=== PATIENT | male | born 1945 | race Caucasian/White ===

== ENCOUNTER 2016-08-09 | Inpatient (IN) | payer MEDICARE, OTHER ==
[~2016-08-09] MED LIST: AMIODARONE PO; ASPIRIN81 M2 PO; ATORVASTATIN CA80 MG PO; AUGMENTIN875 MG PO; BACITRACIN1 GM TOP; FAMOTIDINE PO; FLAGYL PO; FLEXERIL10 M1 PO; HUMULIN 70/30 V10 ML SUBQ; HUMULIN 70100 UNITS/; HUMULIN 70100 UNITS/ SUBQ; IMDUR-ER30 M1 PO; IMDUR-ER60 M1 PO; LEVAQUIN750 MG PO; LIPITOR80 MG PO; LISINOPRIL; LISINOPRIL PO; LO-DOSE ASPIRIN81 M1 PO; LORTAB 7.5-5001 TAB PO; METOPROLOL SUC200 MG PO; MINOXIDIL2.5 MG PO; NEURONTIN100 MG PO; NO MEDICATIONS; NORVASC10 MG PO; NOVOLIN 70100 UNITS/ SUBQ; NOVOLOG100 UNITS/ INJ; ONE DAILY MULTI1 TA3 PO; PLAVIX PO; PRINIVIL20 M1 PO; RENAL SOFTGEL1 MG PO; ROBITUSSIN A-C10 ML PO; TOPROL XL100 MG PO; TUSSIONEX PENN473 ML PO; ULTRAM PO; XARELTO15 MG PO; ZESTRIL40 MG PO; [UNRECOGNIZED DRUG - REMARK]
--- NOTE | ~2016-08-09 | HP ---
Unit #: [id number] #: [id number] Patient: STELLA GUERRERO [id number] [address] [place], [place] [address] [id number] I MR#: [id number] NAME: STELLA GUERRERO ROOM: 21319 Age: 70 Sex: M Admission Date: 08/09/2016 : 1945 Attending Physician: Corry Cisneros M.D. Primary Care Physician: Generic Doctor Not In System HISTORY AND PHYSICAL CHIEF COMPLAINT Vertigo. HISTORY Pleasant 70-year-old male with end stage renal failure, CAD, hypertension, diabetes mellitus, is admitted for vertigo. The patient was seen in this emergency department three days ago for a left lower facial droop. He was diagnosed with Tobias palsy. Head CT showed no acute disease. He was placed on a Medrol dose pack and Valtrex. Shortly after taking the Valtrex he developed a staggering gait, and vertigo. Presented back to this emergency department early this morning where he has a very minor left lower facial droop on exam. Labs are notable for uncontrolled diabetes mellitus on Medrol dose pain, and mild hyperkalemia. He was given Antivert in the ER and referred for admission for an MRI scan. PAST MEDICAL HISTORY 1. AODM, which generally are poorly controlled at home. 2. Hypertension. 3. End stage renal failure on hemodialysis Friday, Friday and Friday. 4. Cardiac catheterization this past year, showing no fixed lesions and patent stent. The patient reports two MIs and underwent PCI and stenting. Has normal LV function. 5. History of cirrhosis with thrombocytopenia. 6. Essential hypertension. 7. Anemia. 8. Hyperlipidemia. 9. Left arm dialysis shunt. 10. Tonsillectomy. 11. ORIF left ankle fracture. ALLERGIES None. HOME MEDICATIONS Norvasc 10 mg daily; lisinopril 40 mg daily; Valtrex 1 g b.i.d.; Medrol dose pack; Prilosec 20 mg daily; Nephro-Marlin daily; aspirin 81 mg daily; Lipitor 80 mg daily; Plavix 75 mg daily; Imdur 30 mg daily; Coreg 12.5 mg b.i.d.; and sliding scale 70/30 Novolin and NovoLog. FAMILY HISTORY Negative for neurologic disease. Unit #: [id number] #: [id number] Patient: STELLA GUERRERO SOCIAL HISTORY The patient lives alone, he is a lifelong nonsmoker. No longer drinks alcohol. REVIEW OF SYSTEMS Notable for vertigo left lower facial droop, diabetes, hypertension, end stage renal failure, CAD, cirrhosis, anemia, hyperlipidemia, diabetes mellitus, above mentioned surgeries. All other surgeries were reviewed and are otherwise negative. PHYSICAL EXAMINATION GENERAL: 70-year-old moderately obese male currently in no acute distress. VITAL SIGNS: Temperature 98.9, pulse 90, respirations 22, blood pressure 148/120, O2 saturation is 96% on room air. HEENT: Eyes - PERRLA, extraocular muscles are intact. Pharynx is benign. Poor dentition with a mild left lower facial droop. CHEST: Clear. CARDIAC: Normal S1 and S2 without S3, S4 or murmur. ABDOMEN: Bowel sounds are present. No hepatosplenomegaly, tenderness, or masses. EXTREMITIES: Without clubbing, cyanosis or edema. Pedal pulses are diminished. NEUROLOGIC: Patient is awake, alert, and oriented. Cranial nerves are intact. He does have some ataxia when attempting to stand and close his eyes when sitting. He has +5/5 strength throughout. Normal rapid alternating movements. Normal [id number]. DIAGNOSTIC STUDIES ADMISSION LABS: Hematocrit 32.9, which is stable, normal white count, platelet count is stable at 77. MCV is 102.6. SMA 12 - glucose is 428, BUN 54, creatinine 7.9, sodium 133, potassium 5.6, chloride 97. ASSESSMENT 1. Vertigo likely secondary to Valtrex. However, given recent left lower facial droop diagnosis, Carrington palsy, will need to rule out a central lesion. 2. Left local facial droop, which probably is related to Carrington palsy on Medrol dose pack and Valtrex. 3. AODM with hyperglycemia on steroids. 4. End stage renal failure on hemodialysis Friday, Friday, and Friday with hyperkalemia. 5. Essential hypertension. 6. CAD, status post PCI and stent. 7. Chronic thrombocytopenia. PLANS 1. MRI of the brain. 2. Discontinue Valtrex. 3. If needed could consider lower dose of Famvir. 4. Diabetic control. 5. IV insulin and p.o. Kayexalate for now and consult nephrology as patient shoulder have his dialysis today. Dictated by Faith Lee M.D. Unit #: [id number] #: [id number] Patient: STELLA GUERRERO AML/ts TD: 08/09/2016 06:25 JOB #: [id number] HISTORY AND PHYSICAL Page 1 of 1 X Faith Lee MD X HISTORY AND PHYSICAL
--- NOTE | ~2016-08-09 | MR18 ---
[facility] A Service of [facility] RADIOLOGY TEXT RESULTS PATIENT: STELLA GUERRERO LOCATION: [facility] 313-01 : 43 UNIT #: [id number] AGE: [address]: Corry Cisneros MD SEX: M ORDER DR: [id number] [facility] [address]. [place], [place] [address] [id number] I MR#: [id number] Acc #: [id number] NAME: STELLA GUERRERO : 1945 SEX: M STUDY DATE/TIME: 08/09/2016 17:01 [facility] STUDY DESCRIPTION: MR Brain Wo Contrast Attending Physician: Corry Cisneros M.D. Ordering Physician: Corry Cisneros M.D. Primary Care Physician: Generic Doctor Not In System MRI CENTER REPORT This report is preliminary unless electronic signature is present. EXAM MRI brain without contrast HISTORY Dizzy for 3 days. Right facial droop and numbness. Aphasia today. FINDINGS MRI brain was performed without contrast. No recent ischemia or infarct. Mild generalized cerebral cortical atrophy and mild chronic ischemic changes in the periventricular white matter bilaterally. No intracranial mass or edema. No focal atrophy or midline shift or extraaxial fluid collection. IMPRESSION 1. No acute findings. No recent ischemia or infarct. 2. Mild generalized cerebral cortical atrophy and minimal chronic ischemic changes in the deep white matter bilaterally. Dictated by... Harpal Love M.D. THIS IS AN ELECTRONICALLY VERIFIED REPORT Harpal Love M.D. at 08/17/2016 10:34 PM RAYMON/art TD: 08/10/2016 03:01 JOB #: [id number] MRI CENTER REPORT Page 1 of 1 COPY
--- NOTE | ~2016-08-09 | CO ---
Unit #: [id number] #: [id number] Patient: STELLA GUERRERO [id number] [facility] [address] [facility]. [place], [place] [address] [id number] I MR#: [id number] NAME: STELLA GUERRERO ROOM: 313 Age: 70 Sex: M Admission Date: 08/09/2016 : 1945 Attending Physician: Corry Cisneros M.D. Primary Care Physician: Generic Doctor Not In System Consultation Date: 08/09/2016 CONSULTATION REPORT PRIMARY CARE PHYSICIAN Not in the system. REASON FOR CONSULTATION 1. Vertigo. 2. Possible diplopia. PATIENT IDENTIFICATION This is a 70-year-old right-handed white male, who is evaluated in room 313 at [facility]. SOURCE OF INFORMATION The patient and the medical records. PROBLEM LIST 1. History of vertigo. 2. Possible diplopia. 3. Recent diagnosis of Carrington palsy. 4. Adult-onset diabetes mellitus. 5. Hypertension. 6. End-stage renal disease, on hemodialysis Friday, Friday, and Friday. 7. Prior history of MO. He underwent PCI and stenting. 8. History of cirrhosis with thrombocytopenia. 9. Essential hypertension. 10. Anemia. 11. Hyperlipidemia. I believe he is on 80 mg of Lipitor. 12. Left arm dialysis shunt. 13. Tonsillectomy. 14. ORIF of left ankle fracture. HISTORY OF PRESENT ILLNESS This is a 70-year-old right-handed white male, who actually presented early this morning to the emergency room complaining of vertigo. He was here apparently on Friday. He was diagnosed with left facial weakness and he was diagnosed with Carrington palsy. In the ER, he was put on Medrol Dosepak and Valtrex and he reports that after taking Valtrex, he developed staggering gait. His left facial asymmetry has almost gone. He has now a patch on the right eye because of diplopia kind of situations. He has renal issues. He is mildly confused. He is now admitted for further workup for stroke, but obviously was not interventional or tPA candidate. He says that this happened this morning, but when looking at his history and his presentation and he called his ex- at 11:00 p.m. last night saying that he was staggering and have dizziness. Unit #: [id number] #: [id number] Patient: STELLA GUERRERO No real headaches. He has his right eye essentially bandaged and he really is very difficult to exam. He does not cooperate. He has his whole head bandaged as if somebody would like a major head trauma and he would not touch it himself. He told me to do it and then fix it back. PAST MEDICAL HISTORY As discussed above. PAST SURGICAL HISTORY As discussed above. ALLERGIES None. HOME MEDICATIONS Norvasc 10 mg daily, lisinopril 40 mg, Valtrex 1 g b.i.d., Medrol Dosepak, Prilosec 20 mg, Nephro-Marlin, aspirin 81 mg, Lipitor 80 mg, Plavix 75 mg, Imdur 30 mg, Coreg 12.5 mg, sliding scale insulin, and NovoLog. FAMILY HISTORY No primary neurologic conditions known. SOCIAL HISTORY He believe that he is . His ex- does help him. Lifelong nonsmoker. No longer drinks alcohol. REVIEW OF SYSTEMS Detailed review of system was attempted. CONSTITUTIONAL: His biggest problem is dizziness. He denies any weight issues, sleep problems, fever, chills, rigor, or sweats. HEENT: No headaches, but he reports vertigo and questionable diplopia. He had face numbness, but it is better. NECK: No neck problems. CARDIOVASCULAR: No chest pain, clubbing, cyanosis, orthopnea, or palpitation. PULMONARY: No shortness of air, cough, or expectoration. GI: He has some nausea. No vomiting. GENITOURINARY: No genitourinary symptom. EXTREMITIES: No extremity problem. BACK: No back problems. PSYCHIATRIC: No psychotic issue. NEUROLOGIC: Left facial numbness and dizziness. No other hematologic, dermatologic, or endocrine issues. He has renal issues, diabetic though. PHYSICAL EXAMINATION VITAL SIGNS: Temperature 98.1, pulse is 90, respirations 16 to 22, O2 were 92% to 98%, blood pressure 193/94 which is variable, it has been as high as 104 diastolic and 193 systolic. Weight of 218 pounds. BMI was 32. NEUROLOGIC: The patient is awake. He is alert. He knows this is Friday, this is 07/2016. He does not know the exact date. He can name and he can follow commands. Unit #: [id number] #: [id number] Patient: STELLA GUERRERO Cranial nerve examination, he has his right eye bandaged. He would not open it up. When I requested it and even pull the bandage off, the only thing I could not really see was medial deviation of both eyes and other eye movements and huizar are very questionable and there is some disconjugacy, was likely considering this medial deviation. Pupils are sluggishly reactive, size about 3 mm. No ptosis though. Nystagmus was seen to some extent as discussed above. I did not see any facial asymmetry. Hearing seemed to be moderately decreased. Tongue was midline. I could not visualize the oropharynx or uvula. Head turning was spontaneous. Motor examination demonstrated normal bulk, tone. Strength was essentially 5-/5 all over. Sensory examination intact for soft touch and pain sensation. No extinction was seen. Romberg was not evaluated. Gait exam was deferred. I could not get any reflexes. Toes are equivocal. DIAGNOSTIC STUDIES LABORATORY RESULTS: Random glucose was anywhere from 165 to 375, BUN was 60, creatinine was 8.4, estimated GFR was 5.7, alkaline phosphatase was 109. CK was 176. White count was 8.8, H and H of 11.1 and 33.0, platelet count was 71. Urinalysis not checked. IMAGING STUDIES: Head CT done from 08/06/2016, did not show anything major. IMPRESSION Dizziness and vertigo for several days, ataxia, weakness, possible diplopia. He started having symptoms 3 days ago, probably worsening last night, so he was not a tPA or interventional candidate. He is mildly confused. There may be some behavioral issues also. He definitely has TME. He definitely has focal neurologic deficit. What was 3 days ago and what is today, I cannot say anything right now. I want an MRI and further testing and he is already on aspirin, Plavix, and Lipitor, so further treatment will be based on what I can do and what we find. I will keep you informed and I talked to his ex- and please see my orders. Stroke workup would be initiated. Carrington palsy is questionable at this time, but again he would not really let me do a good examination on him, so it is very limited. I will follow up. Dictated by... Joe Matt M.D. FRANCISCO/alex TD: 08/10/2016 06:14 JOB #: [id number] Unit #: [id number] #: [id number] Patient: STELLA GUERRERO CONSULTATION REPORT Page 1 of 1 X Joe Matt MD CONSULTATION REPORT
--- NOTE | ~2016-08-09 | CO ---
Unit #: [id number] #: [id number] Patient: STELLA GUERRERO [id number] [facility] [address] [facility]. [place], [place] [address] [id number] I MR#: [id number] NAME: STELLA GUERRERO ROOM: 313 Age: 70 Sex: M Admission Date: 08/09/2016 : 1945 Attending Physician: Corry Cisneros M.D. Primary Care Physician: Generic Doctor Not In System Consultation Date: 08/13/2016 CONSULTATION REPORT DISCUSSION The patient interviewed, chart reviewed, and obtained information from nursing staff. The patient was seen in room 313, bed 1 at [facility]. The patient was dressed in hospital attire, lying comfortably in bed, able to answer questions coherently. The patient according to the nursing staff having periods of time and he is more confused, at times he is very clear. The patient diagnosed with acute toxic metabolic encephalopathy. Currently, denied any hallucination or any thoughts of harming self or others. Cooperative. The patient's vital signs are stable; temperature 98.1, pulse 61, respiratory rate 20, blood pressure 125/47, and oxygen saturation 96%. The patient will be getting dialysis tomorrow. REVIEW OF SYSTEMS Complete review of systems unremarkable. MENTAL STATUS EXAMINATION General appearance, the patient dressed in hospital attire. Attention span and concentration, fair. Speech, regular rate. Oriented in place and person. Mood and affect, labile. Thought process, circumstantial. Thought content, the patient denied any thoughts of harming self or others, but somewhat guarded. Recent and remote memory, fair to slightly impaired. Language, fair. Fund of knowledge, fair to slightly impaired. Insight and judgment, fair to slightly impaired. DIAGNOSES Psychiatric: Major neurocognitive disorder with behavioral disturbances, secondary to metabolic encephalopathy; delirium, F05, resolved. ASSESSMENT/PLAN 1. Supportive psychotherapy and psychoeducation provided to the patient. 2. Educated about benefits and side effects of medication and course and prognosis of illness. 3. Advised to continue with current combination of medication and make further adjustment of medication if needed. Please feel free to call if any questions, telephone #[phone]. Dictated by... Jatinder Orourke M.D. TORRES/alex Unit #: [id number] #: [id number] Patient: STELLA GUERRERO TD: 08/14/2016 23:38 JOB #: [id number] CONSULTATION REPORT Page 1 of 1 X Jatinder Orourke MD CONSULTATION REPORT
--- NOTE | ~2016-08-09 | MR122 ---
[facility] A Service of [facility] RADIOLOGY TEXT RESULTS PATIENT: STELLA GUERRERO LOCATION: [facility] 313 : 43 UNIT #: [id number] AGE: [address]: Corry Cisneros MD SEX: M ORDER DR: [id number] [facility] [address] [facility]. [place], [place] [address] [id number] I MR#: [id number] #: [id number] NAME: STELLA GUERRERO : 1945 SEX: M STUDY DATE/TIME: 08/09/2016 16:59 [facility] STUDY DESCRIPTION: MR MRA Head Wo Contrast Attending Physician: Corry Cisneros M.D. Ordering Physician: Corry Cisneros M.D. Primary Care Physician: Generic Doctor Not In System MRI CENTER REPORT This report is preliminary unless electronic signature is present. EXAM MR angiogram brain without contrast HISTORY Right facial numbness and facial droop for 3 days. Dizzy. Aphasia today. FINDINGS MRI of the brain was performed without contrast. No major vessel occlusion is identified. Dominant intracranial right vertebral artery and relatively hypoplastic left intracranial vertebral artery. 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 Probable moderate to severe short-segment stenosis in the proximal right cavernous carotid artery. The anterior cerebral, middle cerebral, and posterior cerebral arteries are patent bilaterally. No aneurysm or vascular malformation is identified. Additional shxm-bi-ibhpivmq multifocal short segment stenoses in the posterior cerebral arteries bilaterally, probably atherosclerotic. IMPRESSION 1. No major intracranial arterial occlusion. 2. 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 3. Additional gyrg-kj-tpxpened multifocal short segment short-segment probable atherosclerotic stenoses in the posterior cerebral arteries bilaterally. 4. Moderate to moderately severe short-segment stenosis proximal right cavernous internal carotid artery. Dictated by... [facility] A Service of [facility] RADIOLOGY TEXT RESULTS PATIENT: STELLA GUERRERO LOCATION: [facility] 313- : 43 UNIT #: [id number] AGE: [address]: Corry Cisneros MD SEX: M ORDER DR: Harpal Love M.D. THIS IS AN ELECTRONICALLY VERIFIED REPORT Harpal Love M.D. at 08/17/2016 10:34 PM RAYMON/art TD: 08/10/2016 03:14 JOB #: [id number] MRI CENTER REPORT Page 1 of 1 COPY
--- NOTE | ~2016-08-09 | CO ---
Unit #: [id number] #: [id number] Patient: STELLA SEVILLA [id number] [address] [address] [id number] I MR#: [id number] NAME: STELLA SEVILLA ROOM: 313 Age: 70 Sex: M Admission Date: 08/09/2016 : 1945 Attending Physician: Corry Cisneros M.D. Primary Care Physician: Nikolay Doctor Not In System Consultation Date: 08/11/2016 CONSULTATION REPORT REASON FOR CONSULTATION Agitation, confusion. HISTORY OF PRESENT ILLNESS Mr. Stella Sevilla is a 70-year-old white male seen in room 313 bed-1 on 08/11/16. Patient was admitted with a chief complaint of vertigo. The patient has a history of end stage renal disease, coronary artery disease, hypertension, diabetes. The patient, upon admission, became disoriented, confused, agitated. Patient was given injection of Haldol 5 mg, Ativan 0.5 mg which was effective. Patient was started on Zyprexa 5 mg at bedtime for mood stabilization. Patient seems to be better, alert, oriented, coherent. Patient currently on this medication since the , feeling better. Denied any thoughts of harming self or others, denied any psychotic symptoms. Patient reported feeling better, improved memory but, at that time, patient was extremely disoriented and confused. PAST PSYCHIATRIC HISTORY Unremarkable for any history of any previous treatment. No known history of any depression, anxiety or any other diagnosis of dementia. MEDICAL HISTORY Medical history is remarkable for: 1. History of AODM, poorly controlled at home. 2. Hypertension. 3. End stage renal failure, on hemodialysis. 4. History of cirrhosis. 5. Essential hypertension. 6. Anemia. 7. Hyperlipidemia. ALLERGIES No known drug allergies. MEDICATIONS The patient is on: 1. Norvasc. 2. Lisinopril. 3. Valtrex. 4. Medrol pack upon admission. 5. Prilosec. 6. Lipitor. 7. Plavix. 8. Imdur. 9. Coreg. Unit #: [id number] #: [id number] Patient: STELLA SEVILLA 10. Sliding scale Novolin. FAMILY HISTORY/SOCIAL HISTORY The patient has a poor support system. No history of any abuse. No known history of any substance abuse. REVIEW OF SYSTEMS Complete review of systems is unremarkable except as mentioned above. MENTAL STATUS EXAMINATION VITAL SIGNS: 98.3, 73, 20, 143/51. Oxygen saturation 94%. GENERAL APPEARANCE: Patient dressed casually in hospital attire, lying comfortably in bed, able to answer questions appropriately. Speech - regular rate, coherent. Oriented in time, place and person. Mood and affect were flat, sad, dysphoric. Thought process coherent. Thought content - patient denied any thoughts of harming self or others but somewhat guarded. Denied any hallucinations or any suicidal or homicidal ideation. Recent and remote memory fair. Language intact. Fund of knowledge poor. Insight and judgment fair. DIAGNOSIS PSYCHIATRIC: 1. Delirium - F05, resolved. 2. Psychosis - F29.0, controlled. SECONDARY DIAGNOSIS Deferred. MEDICAL DIAGNOSIS Please refer to H and P. STRESSORS Psychosocial stressor. ASSESSMENT/PLAN 1. Supportive psychotherapy and psychoeducation provided to patient. 2. Educated about benefits and side effects of medication and course and prognosis of illness. 3. Recommending at this time to continue with Zyprexa 5 mg at bedtime which is helping to keep patient's mood stable. At this time, recommend patient to continue with this medication for at least for the next couple of months and taper it off once patient is stable or lowering it down. Please feel free to call if any questions. Telephone number [phone]. Dictated by... Abraham Andersen/jose TD: 08/12/2016 06:20 JOB #: [id number] Unit #: [id number] #: [id number] Patient: STELLA SEVILLA CONSULTATION REPORT Page 1 of 1 X Jatinder Orourke MD CONSULTATION REPORT
--- NOTE | ~2016-08-09 | DS ---
Unit #: [id number] #: [id number] Patient: STELLA GUERRERO [id number] [address] [address] [id number] I MR#: [id number] NAME: STELLA GUERRERO ROOM: 313 Age: 70 Sex: M Admission Date: 08/09/2016 : 1945 Discharge Date: 08/14/2016 Attending Physician: Corry Cisneros M.D. Primary Care Physician: Generic Doctor Not In System DISCHARGE SUMMARY ADDENDUM Please refer to Dr. Cisneros's discharge summary as dictated on 08/12/16 for details of hospital stay. The patient essentially was kept in the hospital secondary to logistical/insurance reasons for initial two midnights now that he is qualified per Medicare guidelines. The patient will be transitioned to rehab for ongoing care. FINAL DISCHARGE MEDICATIONS 1. Aspirin 81 mg p.o. daily. 2. Plavix 75 mg p.o. daily. 3. Omeprazole 20 mg p.o. daily. 4. Zyprexa 5 mg p.o. q. h.s. 5. Imdur 30 mg p.o. daily. 6. Nephrocaps, one capsule p.o. daily. 7. Coreg 25 mg p.o. b.i.d. 8. Norvasc 10 mg p.o. daily. 9. Lipitor 80 mg p.o. q. h.s. 10. Catapres 0.1 mg p.o. b.i.d. 11. Zestril 40 mg p.o. daily. 12. Novolin 70/30, 8 units subcu b.i.d. with meals. 13. NovoLog low dose sliding scale with insulin. Accu-Cheks q. a.c. and q. h.s. DISCHARGE DISPOSITION Rehab. DISCHARGE CONDITION Stable. Dictated by... Nolan Dowd M.D. JULIA/jose TD: 08/15/2016 12:22 JOB #: [id number] Unit #: [id number] #: [id number] Patient: STELLA GUERRERO DISCHARGE SUMMARY Page 1 of 1 X Nolan Dowd MD DISCHARGE SUMMARY
--- NOTE | ~2016-08-09 | DS ---
Unit #: [id number] #: [id number] Patient: STELLA GUERRERO [id number] [facility]. [address] [place], [place] [address] [id number] I MR#: [id number] NAME: STELLA GUERRERO ROOM: 313 Age: 70 Sex: M Admission Date: 08/09/2016 : 1945 Discharge Date: 08/12/2016 Attending Physician: Coryr Cisneros M.D. Primary Care Physician: Generic Doctor Not In System DISCHARGE SUMMARY DIAGNOSIS ON ADMISSION Vertigo. DIAGNOSES ON DISCHARGE 1. Acute toxic metabolic encephalopathy. 2. Right basilar artery stenosis. 3. Right internal carotid artery stenosis. 4. End-stage renal disease. Patient is on hemodialysis Friday, Friday and Friday. 5. Hypertension. 6. Type 2 diabetes mellitus. 7. Coronary artery disease, status post stent. 8. History of cirrhosis with thrombocytopenia. 9. Anemia. 10. Hypertension. 11. Hyperlipidemia. CONSULTATIONS 1. Dr. Matt in neurology consultation. 2. Dr. Orourke in psych consultation. DIAGNOSTIC STUDIES LABORATORY: The patient's creatinine was 9.2 today before dialysis. WBC is 7.5, hemoglobin is 10.1, platelet count was 76. Hemoglobin A1C was 6.0. The patient's total cholesterol was 77 and LDL was 17. IMAGING: MRA of neck revealed right basilar and right internal carotid artery stenosis. MRI of brain did not reveal any acute finding. There was no recent ischemia or infarct. HOSPITAL COURSE A 70-year-old male was admitted to the hospital with vertigo. Details are as per admission H and P. Patient had an MRI done which did not reveal any acute CVA. Patient then became really confused and agitated and required a sitter as he was pulling his IVs out and monitor off. He was seen by Dr. Orourke in consultation and was given medication. Patient has gradually improved and is back to his normal self. He is accompanied by his sister and is complaining of weakness; therefore, we will arrange debility. Basilar and internal carotid artery stenosis. Patient is advised to Unit #: [id number] #: [id number] Patient: STELLA GUERRERO follow up with Dr. Huff at [facility] stroke center. End-stage renal disease. Patient continues his hemodialysis. Today patient is comfortable, is not in any acute distress. Patient will be transferred to rehab when bed is available. Further hospital course will be dictated by my partner. Dictated by... Abraham Mosley/ganesh TD: 08/12/2016 15:41 JOB #: [id number] DISCHARGE SUMMARY Page 1 of 1 X Corry Cisneros MD X DISCHARGE SUMMARY
--- NOTE | ~2016-08-09 | CO ---
Unit #: [id number] #: [id number] Patient: STELLA GUERRERO [id number] [address] [address] [id number] I MR#: [id number] NAME: STELLA GUERRERO ROOM: 313 Age: 70 Sex: M Admission Date: 08/09/2016 : 1945 Attending Physician: Corry Cisneros M.D. Primary Care Physician: Generic Doctor Not In System CONSULTATION REPORT REASON FOR CONSULTATION Dialysis management. The patient is a 70-year-old ESRD patient on dialysis every Friday, Friday and Friday. Last dialysis presumably was on Friday. The patient came into the emergency room two days ago with a facial droop. 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 The patient came in yesterday with a staggering gait accompanied by vertigo. The patient has a blood pressure of 193/97. The patient has a CT head that is negative and he is currently scheduled for an MRI that is pending. The patient denies any chest pain or shortness of breath. He does have a mild lower facial droop. He denies any other signs or symptoms of nausea, vomiting or diarrhea. The patient is extremely tearful and agitated due to his symptoms. It is unclear when he was last dialyzed or if he took all (1) dictation ended abruptly Please note: This report has been placed on the patient's electronic medical record in an incomplete status following multiple physician notifications for a completion without a response or resolution. Dictated by... Abraham Solis TD: 08/09/2016 11:26 JOB #: [id number] Unit #: [id number] #: [id number] Patient: STELLA GUERRERO CONSULTATION REPORT Page 1 of 1 X X CONSULTATION REPORT
--- NOTE | ~2016-08-09 | DS ---
Unit #: [id number] #: [id number] Patient: STELLA GUERRERO [id number] [facility]. [place] [id number] I MR#: [id number] NAME: STELLA GUERRERO ROOM: 313 Age: 70 Sex: M Admission Date: 08/09/2016 : 1945 Discharge Date: Attending Physician: Corry Cisneros M.D. DISCHARGE SUMMARY DIAGNOSIS ON ADMISSION Vertigo. DIAGNOSES ON DISCHARGE 1. Acute toxic metabolic encephalopathy. 2. Right basilar artery stenosis. 3. Right internal carotid artery stenosis. 4. End-stage renal disease. Patient is on hemodialysis Friday, Friday and Friday. 5. Hypertension. 6. Type 2 diabetes mellitus. 7. Coronary artery disease, status post stent. 8. History of cirrhosis with thrombocytopenia. 9. Anemia. 10. Hypertension. 11. Hyperlipidemia. CONSULTATIONS 1. Dr. Matt in neurology consultation. 2. Dr. Orourke in psych consultation. DIAGNOSTIC STUDIES LABORATORY: The patient's creatinine was 9.2 today before dialysis. WBC is 7.5, hemoglobin is 10.1, platelet count was 76. Hemoglobin A1C was 6.0. The patient's total cholesterol was 77 and LDL was 17. IMAGING: MRA of neck revealed right basilar and right internal carotid artery stenosis. MRI of brain did not reveal any acute finding. There was no recent ischemia or infarct. HOSPITAL COURSE A 70-year-old male was admitted to the hospital with vertigo. Details are as per admission H and P. Patient had an MRI done which did not reveal any acute CVA. Patient then became really confused and agitated and required a sitter as he was pulling his IVs out and monitor off. He was seen by Dr. Orourke in consultation and was given medication. Patient has gradually improved and is back to his normal self. He is accompanied by his sister and is complaining of weakness; therefore, we will arrange debility. Basilar and internal carotid artery stenosis. Patient is [facility] to [facility] Unit #: [id number] #: [id number] Patient: STELLA GUERRERO End-stage renal disease. Patient continues his hemodialysis. Today patient is comfortable, is not in any acute distress. Patient will be transferred to rehab when bed is available. Further hospital course will be dictated by my partner. Dictated by... Abraham Mosley/ganesh TD: 08/12/2016 15:41 JOB #: [id number] ADDENDUM DISCHARGE MEDICATIONS 1. Nephrocaps 1 capsule p.o. daily. 2. Plavix 75 mg p.o. daily. 3. Imdur-ER 30 mg p.o. daily. 4. Lisinopril 40 mg p.o. daily. 5. Norvasc 10 mg p.o. daily. 6. Lipitor 80 mg p.o. daily. 7. Enteric-coated aspirin 81 mg p.o. daily. 8. Zyprexa 5 mg p.o. at bedtime p.r.n. Please discontinue if patient does not have any agitation in the next 3 days. 9. Coreg 25 mg p.o. b.i.d. 10. Novolin 70/30 at 12 units subcutaneous b.i.d. before meals. 11. Insulin sliding scale as per facility. 12. Prilosec 20 mg p.o. daily. Please note, if there is any discrepancy between dictated medications and medication reconciliation form, kindly follow the medication reconciliation form. DISPOSITION Patient will be transferred to rehab. Dictated by... Abraham Mosley TD: 08/12/2016 16:34 JOB #: [id number] CC: Shelby/marty Please Delete DISCHARGE SUMMARY Page 1 of 1 X Corry Cisneros MD X DISCHARGE SUMMARY
--- NOTE | ~2016-08-09 | MR134 ---
[facility] A Service of [facility] RADIOLOGY TEXT RESULTS PATIENT: STELLA GUERRERO LOCATION: [facility] 313-01 : 43 UNIT #: [id number] AGE: [address]: Corry Cisneros MD SEX: M ORDER DR: [id number] [facility] [address] [facility]. [place], [place] [address] [id number] I MR#: [id number] Acc #: [id number] NAME: STELLA GUERRERO : 1945 SEX: M STUDY DATE/TIME: 08/09/2016 16:59 UNIT: [address] ROOM: [facility] STUDY DESCRIPTION: MR MRA Neck Wo Contrast Attending Physician: Corry Cisneros M.D. Ordering Physician: Corry Cisneros M.D. Primary Care Physician: Generic Doctor Not In System MRI CENTER REPORT This report is preliminary unless electronic signature is present. EXAM MR angiogram neck without contrast HISTORY Right facial numbness and facial droop for 3 days. Dizzy. Aphasia today. FINDINGS MR angiogram of the neck was performed without contrast. Exam sensitivity is limited by motion. The visualized portions of the common carotid arteries are patent bilaterally but sensitivity is insufficient to exclude owtc-fz-rzpmqqda stenoses. The carotid bulbs appear widely patent bilaterally. There is probable kkgj-fn-ywdyiqjq atherosclerotic plaque in the proximal right internal carotid artery, but no convincing evidence of hemodynamically significant stenosis by NASCET criteria. However, the internal carotid arteries are not optimally evaluated due to patient motion artifact. Both vertebral arteries are patent, where visualized. Dominant right vertebral artery. IMPRESSION 1. No convincing evidence of hemodynamically significant cervical carotid artery stenosis by NASCET criteria. However, the exam sensitivity is quite limited by patient motion. Consider carotid ultrasound for further evaluation based on clinical suspicion. There is probably mild atherosclerotic plaque in the proximal right internal carotid artery. 2. Both vertebral arteries are patent with dominant right vertebral artery. Dictated by... Harpal Love M.D. [facility] A Service [facility] RADIOLOGY TEXT RESULTS PATIENT: STELLA GUERRERO LOCATION: [facility] 313-01 : 43 UNIT #: [id number] AGE: [address]: Corry Cisneros MD SEX: M ORDER DR: THIS IS AN ELECTRONICALLY VERIFIED REPORT Harpal Love M.D. at 08/17/2016 10:34 PM RAYMON/art TD: 08/10/2016 03:18 JOB #: [id number] MRI CENTER REPORT Page 1 of 1 COPY
--- NOTE | ~2016-08-09 | CO ---
Unit #: [id number] #: [id number] Patient: STELLA SEVILLA [id number] [address] [place], [place] [address] [id number] I MR#: [id number] NAME: STELLA SEVILLA ROOM: 313 Age: 70 Sex: M Admission Date: 08/09/2016 : 1945 Attending Physician: Corry Cisneros M.D. Consultation Date: 08/14/2016 CONSULTATION REPORT REASON FOR CONSULTATION Followup. DISCUSSION Mr. Stella Sevilla is a 70-year-old male, seen on third floor getting dialysis. The patient was pleasant and cooperative during interview, able to answer questions appropriately. The patient denied any problem with sleep or agitation. Able to answer questions appropriately. Denied any suicidal or homicidal ideation. Denied any psychotic symptom. The patient was compliant and cooperative. No agitation. Denied any hallucination, but still some problem with memory, confusion, but no agitation. The patient is receiving dialysis and diagnosed with acute toxic metabolic encephalopathy. The patient's vital signs; temperature 97.9, pulse 61, respiratory rate 16, blood pressure 152/55, and oxygen saturation 94%. REVIEW OF SYSTEMS Complete review of systems unremarkable. MENTAL STATUS EXAMINATION General appearance, the patient dressed casually in hospital attire, lying comfortably in bed, receiving dialysis. Attention span and concentration, fair. Speech, regular rate and coherent. Oriented in time, place, and person. Mood and affect, sad and dysphoric. Thought process, coherent to circumstantial. Thought content, guarded, but denied any thoughts of harming self or others. Recent and remote memory, fair to poor. Language, fair. Fund of knowledge, fair. Insight and judgment, fair to slightly impaired. 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 ASSESSMENT/PLAN 1. Supportive psychotherapy and psychoeducation provided to the patient. 2. Educated about benefits and side effects of medication and course and prognosis of illness. 3. Advised to continue with current combination of medication. If needed, consider further adjustment of medication. Please feel free to call if any questions, telephone #[phone]. Dictated by... Jatinder Orourke M.D. Unit #: [id number] #: [id number] Patient: STELLA SEVILLA TORRES/alex TD: 08/14/2016 23:46 JOB #: [id number] CONSULTATION REPORT Page 1 of 1 X Jatinder Orourke MD CONSULTATION REPORT
--- NOTE | ~2016-08-09 | CO ---
Unit #: [id number] #: [id number] Patient: STELLA SEVILLA [id number] [address] [address] [id number] I MR#: [id number] NAME: STELLA SEVILLA ROOM: 313 Age: 70 Sex: M Admission Date: 08/09/2016 : 1945 Attending Physician: Corry Cisneros M.D. Primary Care Physician: Nikolay Doctor Not In System Consultation Date: 08/12/2016 CONSULTATION REPORT REASON FOR CONSULTATION Follow. DISCUSSION Mr. Stella Sevilla is a 70-year-old male seen in room 313 bed-1 on 08/12/16. The patient was compliant, cooperative, alert, oriented. Patient was able to answer questions appropriately. Patient denied any thoughts of harming self or others. Patient was diagnosed with acute toxic metabolic encephalopathy. He seemed to be more alert, awake. Also, diagnosed with delirium which seems to be resolved. Denied any suicidal or homicidal ideation. At this time, cooperative, no agitation. No side effect of medication. Vital signs - 98.0, 71, 20, 149/64. Oxygen saturation 99%. REVIEW OF SYSTEMS Complete review of systems unremarkable. MENTAL STATUS EXAMINATION GENERAL APPEARANCE: Patient dressed casually. Attention span and concentration fair. Speech was regular, slow in volume and rate. Oriented in place and person. Mood and affect labile. Thought process was circumstantial. Thought content - guarded, paranoid but denied any thoughts of harming self or others. Recent and remote memory fair to slightly impaired. Language - fair. Fund of knowledge fair Insight and judgment fair to slightly impaired. DIAGNOSIS PSYCHIATRIC: 1. Delirium - F05. 2. Acute toxic metabolic encephalopathy. SECONDARY DIAGNOSIS Deferred. MEDICAL DIAGNOSES 1. Acute toxic metabolic encephalopathy. 2. Right basilar artery stenosis. 3. Right internal carotid artery stenosis. 4. End stage renal disease. 5. Hypertension. 6. Type 2 diabetes mellitus. 7. Coronary artery disease. 8. History of cirrhosis/thrombocytopenia. Unit #: [id number] #: [id number] Patient: STELLA SEVILLA 9. Anemia. 10. Hypertension. 11. Hyperlipidemia. ASSESSMENT/PLAN 1. Supportive psychotherapy and psychoeducation provided to patient. 2. Educated about benefits and side effects of medications and course and prognosis of illness. 3. Advised to continue with the current medication. The patient is on Zyprexa 5 mg at bedtime. Advised to discontinue if patient is able to maintain safe behavior for the next three days. If needed, consider at a later date. Please feel free to call if any questions. Telephone number [phone]. Dictated by... Abraham Andersen/jose TD: 08/14/2016 09:47 JOB #: [id number] CONSULTATION REPORT Page 1 of 1 X Jatinder Orourke MD CONSULTATION REPORT
[2016-08-09 02:38] LABS: BASOPHIL% 0.1 % (0-2.5); EOSINOPHIL% 0.1 % (0.0-7.0); HEMATOCRIT 32.9 % (38.0-50.0); LYMPHOCYTE# 0.7 X10e3 (1.0-3.5); LYMPHOCYTE% 9.1 % (17.0-45.0); MEAN CELL VOLUME 102.6 FL (83-96); MEAN CORPUSCULAR HEMOGLOBIN 34.4 PG (28-34); MEAN CORPUSCULAR HGB CONC 33.5 g/dL (30-36); MONOCYTE# 0.3 X10e3 (0-1.0); MONOCYTE% 4.2 % (3.0-12.0); NEUTROPHIL# 6.7 X10e3 (1.5-7.1); NEUTROPHIL% 86.5 % (40-75); RED CELL DISTRIBUTION WIDTH 16.4 % (11.0-15.5); WHITE BLOOD COUNT 7.8 X10e3 (4.0-10.5)
[2016-08-09 03:06] LABS: DIFF IND YES; PLATELET COUNT 77 X10e3 (140-420)
[2016-08-09 03:17] LABS: ALBUMIN SERUM 4.3 g/dL (3.5-5.0); BILIRUBIN, DIRECT 0.2 mg/dL (0.0-0.2); BILIRUBIN,INDIRECT 0.6 mg/dL (0.0-0.9); BILIRUBIN,TOTAL 0.8 mg/dL (0.2-2.0); BUN/CREATININE RATIO 6.83; CALCIUM SERUM 9.6 mg/dL (8.4-10.2); CREATININE SERUM 7.9 mg/dL (0.6-1.4); GLOM FILT RATE Estimated 6.2 mL/min (>60); PROTEIN TOTAL SERUM 7.2 g/dL (6.0-8.3)
[2016-08-09 03:19] LABS: POTASSIUM 5.6 mmol/L (3.5-5.1)
[2016-08-09 03:22] LABS: ANISOCYTOSIS SL; PLATELET ESTIMATE DECREASED (NORMAL)
[2016-08-09 03:23] LABS: POLYCHROMASIA SL
[2016-08-09] MEDS ORDERED: NORVASC10 MG PO (06:08)
[2016-08-09] MEDS ORDERED: PRILOSEC PO (06:09)
[2016-08-09] MEDS ORDERED: PRINIVIL40 MG PO (06:09)
[2016-08-09] MEDS ORDERED: NEPHRO-VITE RX1 EACH PO (06:09)
[2016-08-09] MEDS ORDERED: COREG12.5 MG PO (06:10)
[2016-08-09] MEDS ORDERED: CLOPIDOGREL75 MG PO (06:10)
[2016-08-09] MEDS ORDERED: LIPITOR80 MG PO (06:10)
[2016-08-09] MEDS ORDERED: IMDUR-ER30 M3 PO (06:10)
[2016-08-09] MEDS ORDERED: NOVOLIN 70100 UNITS/ SUBQ (06:11)
[2016-08-09] MEDS ORDERED: ASPIRIN81 M2 PO (06:11)
[2016-08-09 09:01] LABS: HEMOGLOBIN 11.1 gm/dL (13.0-16.0); MEAN CELL VOLUME 101.9 FL (83-96); MEAN CORPUSCULAR HEMOGLOBIN 34.2 PG (28-34); MEAN CORPUSCULAR HGB CONC 33.5 g/dL (30-36); MEAN PLATELET VOLUME 10.2 FL (6.5-11.5); RED BLOOD COUNT 3.24 X10e (3.90-5.60); RED CELL DISTRIBUTION WIDTH 16.8 % (11.0-15.5); WHITE BLOOD COUNT 8.8 X10e3 (4.0-10.5)
[2016-08-09 09:10] LABS: BUN/CREATININE RATIO 7.14; CALCIUM SERUM 9.5 mg/dL (8.4-10.2); CREATININE SERUM 8.4 mg/dL (0.6-1.4); GLOM FILT RATE Estimated 5.7 mL/min (>60); POTASSIUM 5.1 mmol/L (3.5-5.1)
[2016-08-09 09:29] LABS: %MB 4.1 % (0.0-4.0); MB 7.2 ng/ml
[2016-08-09 13:44] LABS: CHOLESTEROL 77 mg/dL (0-200); HDL CHOLESTEROL 26 mg/dL (29-75); LDL CHOLESTEROL 17 mg/dL (-130); LDL/HDL RATIO 1 RATIO (0-4); TRIGLYCERIDES 171 mg/dL (10-160)
[2016-08-09 20:20] LABS: BUN/CREATININE RATIO 7.34; CALCIUM SERUM 9.4 mg/dL (8.4-10.2); CREATININE SERUM 9.4 mg/dL (0.6-1.4); POTASSIUM 4.4 mmol/L (3.5-5.1)
[2016-08-10 07:04] LABS: HEMATOCRIT 33.7 % (38.0-50.0); HEMOGLOBIN 11.2 gm/dL (13.0-16.0); MEAN CELL VOLUME 101.8 FL (83-96); MEAN CORPUSCULAR HEMOGLOBIN 33.8 PG (28-34); MEAN CORPUSCULAR HGB CONC 33.2 g/dL (30-36); MEAN PLATELET VOLUME 10.8 FL (6.5-11.5); RED BLOOD COUNT 3.3 X10e (3.90-5.60); RED CELL DISTRIBUTION WIDTH 16.5 % (11.0-15.5)
[2016-08-10 07:05] LABS: WHITE BLOOD COUNT 13.7 X10e3 (4.0-10.5)
[2016-08-10 07:22] LABS: BUN/CREATININE RATIO 7.24; CALCIUM SERUM 9.1 mg/dL (8.4-10.2); CREATININE SERUM 9.8 mg/dL (0.6-1.4); GLOM FILT RATE Estimated 4.7 mL/min (>60); POTASSIUM 4.8 mmol/L (3.5-5.1)
[2016-08-11 06:33] LABS: BUN/CREATININE RATIO 6.76; CALCIUM SERUM 9.3 mg/dL (8.4-10.2); GLOM FILT RATE Estimated 7.4 mL/min (>60); POTASSIUM 4.1 mmol/L (3.5-5.1)
[2016-08-11 06:41] LABS: CREATININE SERUM 6.8 mg/dL (0.6-1.4)
[2016-08-12 06:47] LABS: HEMOGLOBIN 10.1 gm/dL (13.0-16.0); MEAN CELL VOLUME 102.2 FL (83-96); MEAN CORPUSCULAR HEMOGLOBIN 34.3 PG (28-34); MEAN CORPUSCULAR HGB CONC 33.6 g/dL (30-36); MEAN PLATELET VOLUME 10.7 FL (6.5-11.5); RED BLOOD COUNT 2.93 X10e (3.90-5.60); RED CELL DISTRIBUTION WIDTH 16.5 % (11.0-15.5); WHITE BLOOD COUNT 5.7 X10e3 (4.0-10.5)
[2016-08-12 07:45] LABS: BUN/CREATININE RATIO 8.15; CREATININE SERUM 9.2 mg/dL (0.6-1.4); GLOM FILT RATE Estimated 5.1 mL/min (>60); MAGNESIUM 2.1 mg/dL (1.6-3.0); POTASSIUM 4.1 mmol/L (3.5-5.1)
[2016-08-13 13:49] LABS: URINE SOURCE CLEAN CATCH
[2016-08-13 14:04] LABS: URINE APPEARANCE CLEAR; URINE BILIRUBIN NEG (NEG); URINE BLOOD TRACE (NEG); URINE COLOR YELLOW; URINE GLUCOSE 500 MG/DL (NEG); URINE KETONE NEG (NEG); URINE LEUKOCYTE ESTERASE NEG (NEG); URINE NITRATE NEG (NEG); URINE PH 7.5 (5-8); URINE PROTEIN 3+ (NEG); URINE SPECIFIC GRAVITY 1.016 (1.003-1.035); URINE UROBILINOGEN 0.2 MG/DL (NEG)
[2016-08-13 14:08] LABS: U HYALINE CASTS AUWI 0-2 /[LPF]; URBCS1 AUWI 0-2 /[HPF] (0-2); URINE BACTERIA AUWI NEG (NEGATIVE); URINE SQUAMOUS EPITHELIAL CELL NONE SEEN /[HPF]
[2016-08-13 14:10] LABS: CULTURE INDICATED? NO
[2016-08-14 06:36] LABS: HEMATOCRIT 27.1 % (38.0-50.0); HEMOGLOBIN 9.1 gm/dL (13.0-16.0); MEAN CELL VOLUME 102.3 FL (83-96); MEAN CORPUSCULAR HEMOGLOBIN 34.4 PG (28-34); MEAN CORPUSCULAR HGB CONC 33.6 g/dL (30-36); MEAN PLATELET VOLUME 11.1 FL (6.5-11.5); RED BLOOD COUNT 2.65 X10e (3.90-5.60); WHITE BLOOD COUNT 4.6 X10e3 (4.0-10.5)
[2016-08-14 07:41] LABS: BUN/CREATININE RATIO 8.53; CALCIUM SERUM 8.5 mg/dL (8.4-10.2); CREATININE SERUM 8.2 mg/dL (0.6-1.4); GLOM FILT RATE Estimated 5.9 mL/min (>60); POTASSIUM 4.4 mmol/L (3.5-5.1)
[2016-08-14] MEDS ORDERED: CATAPRES0.1 MG PO (15:47)
[2016-08-14] MEDS ORDERED: ZYPREXA PO (15:48)
== END 2016-08-14 18:07 | disposition home health service (06) | DRG 91 ==
LOC: CED → C3A PCU 04:50 → CEDOF 04:50 → CED 04:57 → C3A PCU 04:57 → CEDOF 06:25 → C5B 06:52 → CEDOF 10:10 → C3A PCU 10:10 → C5B 10:10 → C3A PCU 10:28
PROVIDERS: Emergency Medicine; Family Medicine; Internal Medicine
PROC: B338ZZZ Magnetic Resonance Imaging (MRI) of Bilateral Internal Carotid Arteries (ICD-10-PCS; principal; 2016-08-09)
PROC: B33GZZZ Magnetic Resonance Imaging (MRI) of Bilateral Vertebral Arteries (ICD-10-PCS; 2016-08-09)
PROC: 5A1D60Z (ICD-10-PCS; 2016-08-09)
DX: G92 Toxic encephalopathy (principal); N18.6 End stage renal disease; I12.0 Hypertensive chronic kidney disease with stage 5 chronic kidney disease or end stage renal disease; D69.6 Thrombocytopenia, unspecified; F05 Delirium due to known physiological condition; F02.81 Dementia in other diseases classified elsewhere, unspecified severity, with behavioral disturbance; R27.0 Ataxia, unspecified; G51.0 Bell's palsy; Z99.2 Dependence on renal dialysis; I25.2 Old myocardial infarction; K74.60 Unspecified cirrhosis of liver; D64.9 Anemia, unspecified; E78.5 Hyperlipidemia, unspecified; I65.1 Occlusion and stenosis of basilar artery; I65.21 Occlusion and stenosis of right carotid artery; I25.10 Atherosclerotic heart disease of native coronary artery without angina pectoris; E11.65 Type 2 diabetes mellitus with hyperglycemia; Z79.82 Long term (current) use of aspirin; Z79.4 Long term (current) use of insulin
CPT/HCPCS: 36415; 70450; 70544; 70547; 70551; 80048; 80061; 80076; 81003; 82550; 82553; 82947; 83036; 83735; 84100; 84484; 85025; 85027; 85610; 85730; 86140; 92507; 92523-GN; 92526; 92610; 97110; 97116; 97162; 97167; 97530; 97535; 99285; G8978-GP; G8979-GP; G8987-GO; G8988-GO; G9159-GN; G9160-GN; G9162-GN; G9163-GN; G9164-GN; J0360; J0515; J1630; J1815; J2060; J2270

== ENCOUNTER 2016-08-18 12:10 | Emergency (ER) | payer MEDICARE ==
--- NOTE | ~2016-08-18 | CR72 ---
[facility] A Service of [facility] RADIOLOGY TEXT RESULTS PATIENT: STELLA GUERRERO LOCATION: [facility] : 43 UNIT #: [id number] AGE: [address]: Brian Puga MD SEX: M ORDER DR: [id number] [facility] [address] [facility]. [place], [place] [address] [id number] E MR#: [id number] Acc #: [id number] NAME: STELLA GUERRERO : 1945 SEX: M STUDY DATE/TIME: 08/18/2016 13:53 UNIT: [facility] ROOM: STUDY DESCRIPTION: CR Chest Single View Portable Attending Physician: Brian Puga M.D. Ordering Physician: Joseluis Loco M.D. Primary Care Physician: Primary Care Physician No MEDICAL IMAGING REPORT This report is preliminary unless electronic signature is present EXAM Portable chest, 08/18/2016 HISTORY Vertigo, shortness of breath and dizziness for 1 week. Benign essential hypertension, diabetes. FINDINGS The heart is enlarged but stable compared with 03/05/2015. Small left pleural effusion with infiltrate or atelectasis left lower lobe. Lungs are otherwise clear. No pneumothorax. IMPRESSION 1. Stable cardiac enlargement compared with 03/04/2016. 2. Small left pleural effusion with infiltrate or atelectasis left lower lobe. Dictated by... Klaus Cleary M.D. THIS IS AN ELECTRONICALLY VERIFIED REPORT Klaus Cleary M.D. at 08/19/2016 2:09 PM YONATAN/art TD: 08/19/2016 01:00 JOB #: [id number] MEDICAL IMAGING REPORT Page 1 of 1 COPY
--- NOTE | ~2016-08-18 | CT71 ---
[facility] A Service of [facility] RADIOLOGY TEXT RESULTS PATIENT: STELLA GUERRERO LOCATION: [facility] : 43 UNIT #: [id number] AGE: [address]: Brian Puga MD SEX: M ORDER DR: [id number] [facility] [address] [facility]. [place], [place] [address] [id number] E MR#: [id number] Acc #: [id number] NAME: STELLA GUERRERO : 1945 SEX: M STUDY DATE/TIME: 08/18/2016 15:07 UNIT: [facility] ROOM: STUDY DESCRIPTION: CT Head Wo Contrast Attending Physician: Brian Puga M.D. Ordering Physician: Joseluis Loco M.D. Primary Care Physician: Primary Care Physician No MEDICAL IMAGING REPORT This report is preliminary unless electronic signature is present EXAM Head CT no contrast, 08/18/2016 INDICATION 70-year-old male with vertigo, dizziness. Recent evaluation and subsequent release for vertigo on Friday. TECHNIQUE Noncontrast CT of the brain was performed. Correlation is made with MRI 08/09/2016. This CT exam was performed with one or more of the following radiation dose reduction techniques: automatic exposure control, adjustment of mA and/or kV according to patient size, and iterative reconstruction. FINDINGS CT BRAIN: There is mild generalized atrophy. Sulci and ventricles are otherwise unremarkable. No midline shift. No evidence of acute intracranial hemorrhage. There is no mass, mass effect or edema to suggest acute infarct and no extraaxial fluid collections are identified. Globes are intact. Bones are intact. Trace fluid in the mastoid air cells and left sphenoid sinus. There is atherosclerotic disease. IMPRESSION 1. No clearly acute intracranial process. No evidence of acute intracranial hemorrhage. 2. Generalized atrophy. Sinus disease as described. Dictated by... Nolberto Alvarado M.D. [facility] A Service of [facility] RADIOLOGY TEXT RESULTS PATIENT: STELLA GUERRERO LOCATION: [facility] : 43 UNIT #: [id number] AGE: [address]: Brian Puga MD SEX: M ORDER DR: THIS IS AN ELECTRONICALLY VERIFIED REPORT Nolberto Alvarado M.D. at 08/19/2016 11:13 AM ROYAL/art TD: 08/19/2016 02:53 JOB #: [id number] MEDICAL IMAGING REPORT Page 1 of 1 COPY
--- NOTE | ~2016-08-18 | MR18 ---
[facility] A Service of [facility] RADIOLOGY TEXT RESULTS PATIENT: STELLA GUERRERO LOCATION: [facility] : 43 UNIT #: [id number] AGE: [address]: Brian Puga MD SEX: M ORDER DR: [id number] [facility] [address] [facility] [place], [place] [address] [id number] E MR#: [id number] Acc #: [id number] NAME: STELLA GUERRERO : 1945 SEX: M STUDY DATE/TIME: 08/18/2016 18:25 UNIT: [facility] ROOM: STUDY DESCRIPTION: MR Brain Wo Contrast Attending Physician: Brian Puga M.D. Ordering Physician: Brian Puga M.D. Primary Care Physician: No Primary Care Physician MRI CENTER REPORT This report is preliminary unless electronic signature is present. EXAM MRI brain without contrast. HISTORY Dizzy, loss of balance today. FINDINGS MRI brain without contrast demonstrates no recent ischemia or infarct. Minimal chronic ischemic changes in the deep white matter bilaterally. Mild generalized cerebral cortical atrophy. No intracranial mass or edema. No midline shift or ventricular dilatation or focal atrophy. No extraaxial fluid collection. IMPRESSION 1. No acute findings. 2. No recent ischemia or infarct. 3. Mild generalized cerebral cortical atrophy and minimal chronic ischemic changes in the deep white matter bilaterally. Dictated by... Harpal Love M.D. THIS IS AN ELECTRONICALLY VERIFIED REPORT Harpal Love M.D. at 08/19/2016 5:38 PM DFL/ruthann TD: 08/19/2016 08:49 JOB #: [id number] MRI CENTER REPORT Page 1 of 1 COPY
--- NOTE | ~2016-08-18 | EKG ---
PATIENT: STELLA GUERRERO UNIT #: [id number] Ventricular Rate: 56 BPM Atrial Rate: 56 BPM P-R Interval: 196 ms QRS Duration: 94 ms Q-T Interval: 442 ms QTC Calculation(Bezet): 426 ms P [place]: 76 degrees Calculated R [place]: 23 degrees Calculated T [place]: 44 degrees Diagnosis Line: Sinus bradycardia Diagnosis Line: Otherwise normal ECG Diagnosis Line: When compared with ECG of 01-MAR-2015 06:38, Diagnosis Line: No significant change was found Diagnosis Line: Confirmed by DIANA MUHAMMAD MD ([id number]) on Diagnosis Line: 08/19/2016 11:07:15 AM INTERPRETING MD: JB QUESADA
[~2016-08-18 12:10] MED LIST changes: +CATAPRES0.1 MG PO; +CLOPIDOGREL75 MG PO; +COREG12.5 MG PO; +IMDUR-ER30 M3 PO; +NEPHRO-VITE RX1 EACH PO; +PRILOSEC PO; +PRINIVIL40 MG PO; +ZYPREXA PO
[2016-08-18 16:03] LABS: BASOPHIL% 0.6 % (0-2.5); EOSINOPHIL# 0.2 X10e3 (0-0.7); EOSINOPHIL% 3.8 % (0.0-7.0); HEMATOCRIT 29.9 % (38.0-50.0); HEMOGLOBIN 9.6 gm/dL (13.0-16.0); LYMPHOCYTE# 1.1 X10e3 (1.0-3.5); LYMPHOCYTE% 20.5 % (17.0-45.0); MEAN CELL VOLUME 106.4 FL (83-96); MEAN CORPUSCULAR HEMOGLOBIN 34.1 PG (28-34); MEAN CORPUSCULAR HGB CONC 32.1 g/dL (30-36); MEAN PLATELET VOLUME 12.1 FL (6.5-11.5); MONOCYTE# 0.4 X10e3 (0-1.0); MONOCYTE% 7.1 % (3.0-12.0); NEUTROPHIL# 3.5 X10e3 (1.5-7.1); RED BLOOD COUNT 2.81 X10e (3.90-5.60); RED CELL DISTRIBUTION WIDTH 16.1 % (11.0-15.5); WHITE BLOOD COUNT 5.2 X10e3 (4.0-10.5)
[2016-08-18 16:23] LABS: PLATELET COUNT 66 X10e3 (140-420)
[2016-08-18 16:24] LABS: DIFF IND YES
[2016-08-18 16:29] LABS: ANISOCYTOSIS MOD; PLATELET ESTIMATE DECREASED (NORMAL); POIKILOCYTOSIS MOD
[2016-08-18 16:30] LABS: BURR CELLS PRESENT; OVALOCYTES PRESENT
[2016-08-18 16:31] LABS: SPHEROCYTE SL
[2016-08-18 16:38] LABS: POC - CKMB <1.0 ng/mL (0.0-7.9); POC - TROPONIN <0.05 ng/mL (<=0.05)
[2016-08-18 16:41] LABS: ALBUMIN SERUM 3.8 g/dL (3.5-5.0); BILIRUBIN, DIRECT 0.3 mg/dL (0.0-0.2); BILIRUBIN,INDIRECT 0.9 mg/dL (0.0-0.9); BILIRUBIN,TOTAL 1.2 mg/dL (0.2-2.0); BUN/CREATININE RATIO 8.16; CALCIUM SERUM 8.6 mg/dL (8.4-10.2); CREATININE SERUM 8.7 mg/dL (0.6-1.4); GLOM FILT RATE Estimated 5.5 mL/min (>60); PROTEIN TOTAL SERUM 6.6 g/dL (6.0-8.3)
== END 2016-08-18 20:10 | disposition home or self-care (01) ==
LOC: CED 12:10
PROVIDERS: Emergency Medicine
DX: N18.6 End stage renal disease (principal); I50.9 Heart failure, unspecified; E11.9 Type 2 diabetes mellitus without complications; Z79.899 Other long term (current) drug therapy
CPT/HCPCS: 36415; 70450; 70551; 71010; 80048; 80076; 82553; 82947; 84484; 85025; 93005; 99285